=== PATIENT | female | born 1945 | race Hispanic/Latino ===

== ENCOUNTER 2024-11-18 12:04 | Inpatient (IN) | payer SELFPAY ==
[~2024-11-18] VITALS: Ht 157.5 cm; Wt 68.9 kg
[2024-11-18 12:44] LABS: BASOPHILS # (AUTO) 0.1 (0.0-0.1); BASOPHILS % 0.7 % (0.0-1.0); EOSINOPHILS % 0.1 % (0.0-6.0); HEMATOCRIT 35.3 % (34.2-44.1); HEMOGLOBIN 11.7 g/dL (12.0-16.0); LYMPHOCYTES # (AUTO) 1.5 (1.0-3.2); LYMPHOCYTES % 11.9 % (18.0-39.1); MEAN CORPUSCULAR HEMOGLOBIN 33.1 pg (28-32); MEAN CORPUSCULAR HGB CONC 33.1 g/dL (31-35); MEAN CORPUSCULAR VOLUME 99.7 fL (81-99); MONOCYTES # (AUTO) 1.8 (0.2-0.8); MONOCYTES % 14.2 % (4.4-11.3); NEUTROPHILS % 71.6 % (38.7-80.0); PLATELET COUNT 239 x10e3/uL (140-360); RED BLOOD COUNT 3.54 x10e6/uL (3.6-5.1); RED CELL DISTRIBUTION WIDTH 14.3 % (11.7-14.4); WHITE BLOOD COUNT 12.59 x10e3/uL (4.8-10.8)
[2024-11-18 13:29] LABS: STREPTOCOCCUS GRP A ANTIGEN NEGATIVE (NEGATIVE)
[2024-11-18 13:30] LABS: CORONAVIRUS COVID-19 AG NEGATIVE (NEGATIVE); INFLUENZA A AG NEGATIVE (NEGATIVE); INFLUENZA B AG NEGATIVE (NEGATIVE)
[2024-11-18 15:05] LABS: ALBUMIN 3.1 g/dL (3.5-5.0); ALBUMIN/GLOBULIN RATIO 0.8 (0.8-2.0); ANION GAP 16.7 mmol/L (8-16); BILIRUBIN,TOTAL 1.3 mg/dL (0.2-1.2); CALCIUM 9.1 mg/dL (8.4-10.2); CREATININE, SERUM 0.89 mg/dL (0.57-1.11); POTASSIUM 3.7 mmol/L (3.5-5.1); TOTAL PROTEIN 7.1 g/dL (6.5-8.1)
[2024-11-18 15:11] LABS: TROPONIN I 0.022 ng/mL (0-0.300)
[2024-11-18] MEDS: SODIUM CHLORIDE 0.9% 1000ML 1,000 ML IV SCH (17:53)
[2024-11-18] MEDS ORDERED: POLYETHYLENE GLYCOL 3350 17 GM PACK PO PRN (18:15)
[2024-11-18] MEDS ORDERED: MAGNESIUM/ALUMINUM/SIMETHICONE 30 ML UDC PO PRN (18:15)
[2024-11-18] MEDS ORDERED: DOCUSATE SODIUM 100 MG CAP PO PRN (18:15)
[2024-11-18] MEDS ORDERED: HYDRALAZINE HCL 20 MG/ML VIAL IV PRN (18:15)
[2024-11-18] MEDS ORDERED: ACETAMINOPHEN 325 MG TAB PO PRN (18:15)
[2024-11-18 18:53] VITALS: PULSE 97; RESP 16; TEMP 100.8
[2024-11-18 19:15] VITALS: PULSE 99; RESP 20; O2SAT 96
[2024-11-18] MEDS: ONDANSETRON HCL INJ 2MG/ML 2ML 2 MG/ML VIAL IV PRN (19:25)
[2024-11-18] MEDS: Morphine 2mg Syringe 2 MG/ML SYR IV PRN (19:25)
[2024-11-18] MEDS: ACETAMINOPHEN 325 MG TAB PO PRN (19:25)
[2024-11-18 20:55] VITALS: BP 127/67; PULSE 77; RESP 20; TEMP 99.1; O2SAT 92
[2024-11-18 22:02] VITALS: BP 127/67; PULSE 77; RESP 20; TEMP 99.1; O2SAT 92
[2024-11-18] MEDS ORDERED: INFLUENZA VIRUS VAC SPLIT INJ 0.5 ML SYR IM SCH (22:26)
[2024-11-18 23:14] VITALS: BP 119/81; PULSE 93; RESP 20; TEMP 99; O2SAT 95
[2024-11-18 23:30] VITALS: PULSE 93; RESP 20; O2SAT 95
[2024-11-18] MEDS: MELATONIN 3 MG TAB PO PRN (23:41)
[2024-11-18 23:55] LABS: TROPONIN I 0.024 ng/mL (0-0.300)
[2024-11-19] VITALS (8 sets, daily range): BP systolic 103–147; BP diastolic 52–81; PULSE 56–94; RESP 17–20; TEMP 98.2–98.9; O2SAT 92–100
[2024-11-19] MEDS ORDERED: MIRTAZAPINE30 MG PO (00:15)
[2024-11-19] MEDS ORDERED: ATORVASTATIN CA40 MG PO (00:15)
[2024-11-19 05:57] LABS: BASOPHILS # (AUTO) 0.1 (0.0-0.1); BASOPHILS % 0.7 % (0.0-1.0); EOSINOPHILS % 0.4 % (0.0-6.0); HEMATOCRIT 32.5 % (34.2-44.1); HEMOGLOBIN 10.7 g/dL (12.0-16.0); LYMPHOCYTES # (AUTO) 1.4 (1.0-3.2); LYMPHOCYTES % 12.6 % (18.0-39.1); MEAN CORPUSCULAR HEMOGLOBIN 32.5 pg (28-32); MEAN CORPUSCULAR HGB CONC 32.9 g/dL (31-35); MEAN CORPUSCULAR VOLUME 98.8 fL (81-99); MONOCYTES # (AUTO) 1.3 (0.2-0.8); MONOCYTES % 11.9 % (4.4-11.3); NEUTROPHILS # (AUTO) 7.9 (2.1-6.9); NEUTROPHILS % 72.7 % (38.7-80.0); PLATELET COUNT 221 x10e3/uL (140-360); RED BLOOD COUNT 3.29 x10e6/uL (3.6-5.1); RED CELL DISTRIBUTION WIDTH 14.4 % (11.7-14.4)
[2024-11-19 06:15] LABS: ALBUMIN 2.5 g/dL (3.5-5.0); ALBUMIN/GLOBULIN RATIO 0.7 (0.8-2.0); ANION GAP 13.5 mmol/L (8-16); BILIRUBIN,TOTAL 0.9 mg/dL (0.2-1.2); CALCIUM 8.3 mg/dL (8.4-10.2); CREATININE, SERUM 0.74 mg/dL (0.57-1.11); POTASSIUM 3.5 mmol/L (3.5-5.1); TOTAL PROTEIN 5.9 g/dL (6.5-8.1)
[2024-11-19] MEDS: ALBUTEROL SULF 0.083% NEB SOLN 3 ML NEB NEB PRN (06:20)
[2024-11-19 06:41] LABS: TROPONIN I 0.019 ng/mL (0-0.300)
[2024-11-19 09:44] LABS: LYMPHOCYTES % (MANUAL) 3 % (19-48); MONOCYTES % (MANUAL) 10 % (3.4-9.0); NEUTROPHILS % (MANUAL) 87 % (40-74); PLATELET ESTIMATE ADEQUATE; PLATELET MORPHOLOGY COMMENT NORMAL
[2024-11-19] MEDS: MULTIVITAMINS/MINERALS TAB PO SCH (10:09)
[2024-11-19] MEDS: ACETAMINOPHEN/CODEINE 300MG - 30MG TAB PO PRN (16:23)
[2024-11-19] MEDS: ENOXAPARIN SOD INJ 40 MG/0.4 ML SYR SC SCH (17:47)
[2024-11-20] VITALS (11 sets, daily range): BP systolic 120–173; BP diastolic 67–91; PULSE 78–88; RESP 16–20; TEMP 98.2–98.8; O2SAT 90–100
[2024-11-20] MEDS: GUAIFENESIN/DEXTROMETHORPHAN LIQD 5 ML UDC PO PRN (17:33)
[2024-11-21 03:11] VITALS: BP 170/81; PULSE 82; RESP 20; TEMP 98.1; O2SAT 95
[2024-11-21 07:44] VITALS: PULSE 79; RESP 20; O2SAT 94
[2024-11-21 08:23] VITALS: BP 164/91; PULSE 82; RESP 19; TEMP 98.1; O2SAT 95
[2024-11-21] MEDS ORDERED: AUGMENTIN 500-1 EACH PO (11:52)
[2024-11-21] MEDS ORDERED: ZITHROMAX250 MG PO (12:01)
[2024-11-21 12:13] VITALS: BP 165/96; PULSE 86; RESP 19; TEMP 97.9; O2SAT 100
[2024-11-21 13:53] VITALS: PULSE 82; RESP 20; O2SAT 95
== END 2024-11-21 17:00 | disposition home or self-care (01) | DRG 195 ==
LOC: ER 12:18 → ERHOLD 17:33 → MED/SURG2 20:59
PROVIDERS: ADMIT Internal Medicine; ATTEND Internal Medicine
DX: J18.9 Pneumonia, unspecified organism (principal); K21.9 Gastro-esophageal reflux disease without esophagitis; R09.02 Hypoxemia; D64.9 Anemia, unspecified; K44.9 Diaphragmatic hernia without obstruction or gangrene; R06.02 Shortness of breath; R53.81 Other malaise; Z11.52 Encounter for screening for COVID-19; Z90.49 Acquired absence of other specified parts of digestive tract
CPT/HCPCS: 36415; 71260; 80053; 82550; 83518; 83605; 83690; 83880; 84484; 85025; 87040; 87070; 93005; 94640; 94799; 99284; J0696; J1650; J2270; J2405; J2543; J7030; J7050